=== PATIENT | male | born 1990 | race Two or more races ===

== ENCOUNTER 2023-03-01 20:23 | Emergency (ER) | payer OTHER, SELFPAY ==
--- NOTE | ~2023-03-01 | XR_ITS ---
EXAMINATION: XR CHEST CLINICAL INFORMATION: Chest pain, shortness of breath COMPARISON: None available. TECHNIQUE: Frontal view of the chest was obtained. FINDINGS: Lungs are mildly hypoinflated. No focal consolidation is seen. No evidence of pneumothorax, pleural effusion, or pulmonary edema. The cardiomediastinal contour is unremarkable. No acute osseous findings are seen. XR/XR chest 1V IMPRESSION: Low lung volumes without acute findings.
--- NOTE | 2023-03-01 20:24 | ED.SOB ---
HPI - SOB/Dyspnea General Chief Complaint: Chest Pain Stated Complaint: chest pain sob Time Seen by Provider: 03/01/23 21:06 Source: patient Mode of arrival: ambulatory Limitations: no limitations History of Present Illness HPI Narrative: Patient complaining of chest pain and shortness of breath after eating marijuana gummies patient been sleeping since then vomiting multiple times with midsternal pain saturating 98% at room air tachycardic with heart rate of 120 patient's girlfriend came agreed that patient does not take any other drugs accept cannabis there was question of cocaine use when patient came Related Data Previous Rx's Medication Instructions Recorded ondansetron 4 mg disintegrating 4 mg PO Q6-8H PRN nausea and 03/02/23 tablet vomiting #7 tabs Allergies Allergy/AdvReac Type Severity Reaction Status Date / Time No Known Allergies Allergy Verified 03/01/23 20:24 Review of Systems Review of Systems: Yes all other systems are reviewed and are negative [facility] Social History Social History Alcohol intake: unknown Smoked in Last 30 Days: No Use of substances other than those prescribed or required for medical reasons: Unknown Advance Directives: No Advance Directives Information Provided: Yes Physical Exam Vital Signs: Vital Signs: Last Vital Signs Temp 98.3 F 03/02/23 01:25 Pulse 99 03/02/23 01:25 Resp 15 03/02/23 01:25 BP 133/88 03/02/23 01:25 Pulse Ox 100 03/02/23 01:25 O2 Del Method Room Air 03/02/23 01:25 BMI result Body Mass Index 20.8 Appearance: Lethargic sleepy vomiting frequently No acute distress. Eyes: PERRLA, No Nystagmus ENT: Pharynx normal. Oral Mucosa moist Neck: Normal inspection. Neck supple. CVS: Normal heart rate and rhythm. Pulses normal. Respiratory: No respiratory distress. Equal air entry bilateral, no wheezing/rales/rhonchi Abdomen: Soft mild epigastric tenderness Bowel sounds are present, no mass palpable, no CVA tenderness Skin: Skin warm and dry. Normal skin color. Normal skin turgor. Extremities: No lower extremity edema. No calf tenderness Neuro: Sleepy. No motor deficit. No sensory deficit.No cerebellar signs , cranial nerves II-XII intact Course Course Course Narrative: RME: 33-year-old male with a past medical history of asthma presenting to the ED complaining of sudden onset chest pain and shortness of breath x15 mins. Admits to using cocaine [employer]. Tachycardic to 150s in triage, Hypotensive, appears uncomfortable. Lungs CTA. +emesis on floor of triage. EKG, Labs, UA, BENZ, CXR ordered Full HPI, ROS and PE to be performed by primary ED provider. Medications Administered Discontinued Medications Generic Name Dose Route Start Last Admin Trade Name Freq PRN Reason Stop Dose Admin Famotidine 20 mg 03/01/23 23:13 03/01/23 23:49 Famotidine/Pf 20 Mg/2 Ml Vial IVPUSH 03/01/23 23:14 20 mg ONCE ONE Administration Sodium Chloride 1,000 mls @ 999 mls/hr 03/01/23 23:12 03/02/23 00:51 Ns IV 03/02/23 00:12 Infused .Q1H1M ONE Infusion Sodium Chloride 1,000 mls @ 999 mls/hr 03/02/23 00:49 03/02/23 02:14 Ns IV 03/02/23 01:49 Infused .Q1H1M ONE Infusion Ondansetron HCl 4 mg 03/01/23 22:00 03/01/23 22:06 Ondansetron Odt 4 Mg Tab.Rapdis TRANSLINGU 03/01/23 22:01 4 mg ONCE ONE Administration Ondansetron HCl 4 mg 03/01/23 23:12 03/01/23 23:49 Ondansetron Hcl 4 Mg/2 Ml Vial IVPUSH 03/01/23 23:13 4 mg ONCE ONE Administration Potassium Chloride 10 meq 03/02/23 01:55 03/02/23 02:13 Potassium Chloride Er 10 Meq Tablet.Er PO 03/02/23 01:56 10 meq ONCE ONE Administration Medical Decision Making Medical Decision Making [facility] Narrative: Patient felt better after IV fluids urine tox positive for cannabis only EKG normal high sensitive troponin negative heart score of 0 patient symptoms likely from cannabis use patient taking p.o. fluids discharge patient home with family Differential Diagnosis Differential Diagnoses: The differential diagnosis associated with the presentation includes Metabolic encephalopathy/cannabis induced vomiting/anxiety/substance abuse Lab Data [facility] Lab Attestation statement: I reviewed the patient's lab results. 03/01/23 20:39 03/01/23 20:39 Labs: Lab Results 03/01/23 03/01/23 03/01/23 Range/Units 20:39 20:39 20:39 WBC 11.5 H (4.8-10.8) X10*3/uL RBC 4.79 (4.60-5.80) X10*6/uL Hgb 15.0 (14.0-18.0) g/dl Hct 41.4 L (42.0-52.0) % MCV 86.4 (80.0-98.0) fL MCH 31.3 (27.0-33.0) pg MCHC 36.2 H (31.0-36.0) g/dl RDW 11.8 (11.0-16.0) % Plt Count 292 (160-400) X10*3/uL MPV 10.3 (9.4-12.4) fL Immature Gran % (Auto) 0.3 (0.0-0.4) % Neut % (Auto) 36.4 L (45-73) % Lymph % (Auto) 53.7 H (20-40) % [place] % (Auto) 7.3 (2-11) % Eos % (Auto) 1.7 (0-4) % Baso % (Auto) 0.6 (0-2) % Lymph # (Auto) 6.2 H (1.2-4.9) X10*3/uL [place] # (Auto) 0.8 (0.1-1.2) X10*3/uL Eos # (Auto) 0.2 (0.0-0.4) X10*3/uL Baso # (Auto) 0.1 (0.0-0.2) X10*3/uL Abs Immat Gran (auto) 0.03 (0.00-0.03) X10*3/uL Absolute Neuts (auto) 4.2 (2.0-8.3) x10*3/uL Absolute Nucleated RBC 0.000 (0.0-0.012) X10*3/uL Nucleated RBC % (auto) 0.0 (0.0-0.2) /100WBC Smear Tech's Comments VERIFIED PT 12.1 (11.1-13.3) SEC INR 1.0 (0.9-1.1) Sodium 141 (135-145) mmol/L Potassium 3.1 L (3.3-5.1) mmol/L Chloride 104 (96-108) mmol/L Carbon Dioxide 25 (22-29) mmol/L Anion Gap 15 (12-20) BUN 19 H (9-16) mg/dL Creatinine 1.17 (0.5-1.4) mg/dL Estim Creat Clear Calc 71.3 Estimated GFR > 60 Random Glucose 128 H (60-115) mg/dL Calcium 9.9 (8.4-10.2) mg/dL Magnesium 1.8 (1.6-2.6) mg/dL Total Bilirubin 0.5 (0.0-1.0) mg/dL Direct Bilirubin 0.2 (0.0-0.5) mg/dL AST 22 (5-37) U/L ALT 13 (0-40) U/L Alkaline Phosphatase 63 (39-117) U/L Troponin I High Sens (<3.5-35.0) ng/L Total Protein 7.9 (6.5-8.0) g/dL Albumin 4.5 (3.5-5.0) g/dL Urine Opiates Screen (Not Detect) Urine Fentanyl Screen (Not Detect) Ur Barbiturates Screen (Not Detect) Ur Phencyclidine Scrn (Not Detect) Ur Amphetamines Screen (Not Detect) U Benzodiazepines Scrn (Not Detect) Urine Cocaine Screen (Not Detect) U Marijuana (THC) Screen (Not Detect) Ethyl Alcohol mg/dL 03/01/23 03/01/23 03/02/23 Range/Units 20:39 20:39 01:29 WBC (4.8-10.8) X10*3/uL RBC (4.60-5.80) X10*6/uL Hgb (14.0-18.0) g/dl Hct (42.0-52.0) % MCV (80.0-98.0) fL MCH (27.0-33.0) pg MCHC (31.0-36.0) g/dl RDW (11.0-16.0) % Plt Count (160-400) X10*3/uL MPV (9.4-12.4) fL Immature Gran % (Auto) (0.0-0.4) % Neut % (Auto) (45-73) % Lymph % (Auto) (20-40) % [place] % (Auto) (2-11) % Eos % (Auto) (0-4) % Baso % (Auto) (0-2) % Lymph # (Auto) (1.2-4.9) X10*3/uL [place] # (Auto) (0.1-1.2) X10*3/uL Eos # (Auto) (0.0-0.4) X10*3/uL Baso # (Auto) (0.0-0.2) X10*3/uL Abs Immat Gran (auto) (0.00-0.03) X10*3/uL Absolute Neuts (auto) (2.0-8.3) x10*3/uL Absolute Nucleated RBC (0.0-0.012) X10*3/uL Nucleated RBC % (auto) (0.0-0.2) /100WBC Smear Tech's Comments PT (11.1-13.3) SEC INR (0.9-1.1) Sodium (135-145) mmol/L Potassium (3.3-5.1) mmol/L Chloride (96-108) mmol/L Carbon Dioxide (22-29) mmol/L Anion Gap (12-20) BUN (9-16) mg/dL Creatinine (0.5-1.4) mg/dL Estim Creat Clear Calc Estimated GFR Random Glucose (60-115) mg/dL Calcium (8.4-10.2) mg/dL Magnesium (1.6-2.6) mg/dL Total Bilirubin (0.0-1.0) mg/dL Direct Bilirubin (0.0-0.5) mg/dL AST (5-37) U/L ALT (0-40) U/L Alkaline Phosphatase (39-117) U/L Troponin I High Sens < 2.7 (<3.5-35.0) ng/L Total Protein (6.5-8.0) g/dL Albumin (3.5-5.0) g/dL Urine Opiates Screen Not Detected (Not Detect) Urine Fentanyl Screen Not Detected (Not Detect) Ur Barbiturates Screen Not Detected (Not Detect) Ur Phencyclidine Scrn Not Detected (Not Detect) Ur Amphetamines Screen Not Detected (Not Detect) U Benzodiazepines Scrn Not Detected (Not Detect) Urine Cocaine Screen Not Detected (Not Detect) U Marijuana (THC) Screen POSITIVE H (Not Detect) Ethyl Alcohol < 10 mg/dL Independent Interpretation I performed an independent interpretation of an: EKG Interpretation: Sinus tachycardia heart rate 120 beats per minute no acute ST-T changes no acute ischemia Discharge Plan Discharge Clinical Impression: Cannabis abuse with intoxication Patient Disposition: Home, Self-Care Instructions: Cannabis Abuse (ED) Additional Instructions: Drink plenty of fluids Zofran for nausea/vomiting Stop using cannabis Beber mucho l?quido Zofran para n?useas/v?mitos Alissa de consumir cannabis Prescriptions: New ondansetron 4 mg tablet,disintegrating 4 mg PO Q6-8H PRN (Reason: nausea and vomiting) Qty: 7 0RF Interventions: ED Discharge Assessment Last Done: 03/02/23 02:22 Discharge Date/Time: 03/02/23 02:23 Print Language: Turkish
[2023-03-01 20:25] VITALS: BP 84/63; PULSE 140; RESP 20; TEMP 36.7; O2SAT 100; BMI 20.8
--- NOTE | 2023-03-01 20:25 | ECG_ITS ---
Test Reason : CP Blood Pressure : / mmHG Vent. Rate : 120 BPM Atrial Rate : 120 BPM P-R Int : 120 ms QRS Dur : 090 ms QT Int : 314 ms P-R-T Axes : 066 074 -11 degrees QTc Int : 443 ms Sinus tachycardia Left ventricular hypertrophy with repolarization abnormality ( Sokolow-Mcmillan ) Abnormal ECG No previous ECGs available Referred By: Natalia Mclain Electronically Signed By:ELENA GUERRERO
[2023-03-01 20:53] LABS: Basophils Absolute Auto 0.1 X10*3/uL (0.0-0.2); Basophils Percent Auto 0.6 % (0-2); Eosinophils Absolute Auto 0.2 X10*3/uL (0.0-0.4); Eosinophils Percent Auto 1.7 % (0-4); Hematocrit 41.4 % (42.0-52.0); Imm Gran Abs Auto 0.03 X10*3/uL (0.00-0.03); Imm Gran Pct Auto 0.3 % (0.0-0.4); Lymphocytes Percent Auto 53.7 % (20-40); MANUAL DIFF FLAG SCAN; Mean Corpuscular HGB Conc 36.2 g/dl (31.0-36.0); Mean Corpuscular Hemoglobin 31.3 pg (27.0-33.0); Mean Corpuscular Volume 86.4 fL (80.0-98.0); Mean Platelet Volume 10.3 fL (9.4-12.4); Monocytes Absolute Auto 0.8 X10*3/uL (0.1-1.2); Monocytes Percent Auto 7.3 % (2-11); Neutrophils Absolute Auto 4.2 x10*3/uL (2.0-8.3); Neutrophils Percent Auto 36.4 % (45-73); Platelet Count 292 X10*3/uL (160-400); Prothrombin Time 12.1 SEC (11.1-13.3); Red Blood Count 4.79 X10*6/uL (4.60-5.80); Red Cell Distribution Width 11.8 % (11.0-16.0); SCAN SMEAR FLAG 1; White Blood Count 11.5 X10*3/uL (4.8-10.8)
[2023-03-01 20:55] LABS: Lymphocytes Absolute Auto 6.2 X10*3/uL (1.2-4.9)
[2023-03-01 20:58] LABS: Ethanol < 10 mg/dL
[2023-03-01 21:00] LABS: Alanine Aminotransferase 13 U/L (0-40); Albumin Level 4.5 g/dL (3.5-5.0); Alkaline Phosphatase 63 U/L (39-117); Anion Gap 15 (12-20); Aspartate Amino Transferase 22 U/L (5-37); Bilirubin Direct 0.2 mg/dL (0.0-0.5); Bilirubin Total 0.5 mg/dL (0.0-1.0); Blood Urea Nitrogen 19 mg/dL (9-16); Calcium 9.9 mg/dL (8.4-10.2); Carbon Dioxide 25 mmol/L (22-29); Chloride 104 mmol/L (96-108); Creatinine Clr Calc Pharmacy 71.3; Estimated Glomerular Filt Rate > 60; Glucose Random 128 mg/dL (60-115); Magnesium 1.8 mg/dL (1.6-2.6); Potassium 3.1 mmol/L (3.3-5.1); Sodium 141 mmol/L (135-145); Total Protein 7.9 g/dL (6.5-8.0)
--- NOTE | 2023-03-01 21:06 | PC.NURSE ---
Pt placed in hospital attire, belongings placed in [facility] locker #[id number]
[2023-03-01 21:10] LABS: Troponin-I High Sensitivity < 2.7 ng/L (<3.5-35.0)
[2023-03-01 21:16] LABS: SLIDE REVIEW VERIFIED
[2023-03-01] MEDS: Ondansetron ODT 4 MG TAB.RAPDIS TRANSLINGU (22:06)
--- NOTE | 2023-03-01 22:06 | PC.NURSE ---
pt medicated with zofran odt for N/V
[2023-03-01 22:36] VITALS: BP 113/70; PULSE 108; RESP 22; O2SAT 97
--- NOTE | 2023-03-01 23:11 | PC.NURSE ---
pt drinking water tolerating well
[2023-03-01] MEDS: 0.9 % Sodium Chloride 1,000 ML 999 ML IV (23:48)
[2023-03-01] MEDS: ondansetron HCL 4 MG/2 ML VIAL IVPUSH (23:49)
[2023-03-01] MEDS: Famotidine/PF 20 MG/2 ML VIAL IVPUSH (23:49)
--- NOTE | 2023-03-01 23:50 | PC.NURSE ---
pt vomiting, brown emesis. iv established, NS infusing medicated with zofran and pepcid. Girlfriend at bedside
[2023-03-02] MEDS: 0.9 % Sodium Chloride 1,000 ML 999 ML IV (00:52)
--- NOTE | 2023-03-02 00:52 | PC.NURSE ---
pt unable to void, 2nd liter of NS infusing
[2023-03-02 01:25] VITALS: BP 133/88; PULSE 99; RESP 15; TEMP 36.8; O2SAT 100
--- NOTE | 2023-03-02 01:31 | PC.NURSE ---
pt straight cath for urine
[2023-03-02 01:45] LABS: Amphetamine Screen Urine Not Detected (Not Detect); Barbiturates, Urine Not Detected (Not Detect); Benzodiazepines Screen Urine Not Detected (Not Detect); Cannabinoid Screen Urine POSITIVE (Not Detect); Cocaine Screen Urine Not Detected (Not Detect); Fentanyl, urine Not Detected (Not Detect); Opiate Screen Urine Not Detected (Not Detect); Phencyclidine Screen Urine Not Detected (Not Detect)
[2023-03-02] MEDS: Potassium Chloride ER 10 MEQ TABLET.ER PO (02:13)
--- NOTE | 2023-03-02 02:23 | PC.NURSE ---
pt ambulatory at d/c, gait steady, denies any complaints
== END 2023-03-02 02:23 | disposition home or self-care (01) ==
PROVIDERS: Physician Assistant; Emergency Provider Internal Medicine
DX: F12.120 Cannabis abuse with intoxication, uncomplicated (principal); R07.9 Chest pain, unspecified; R10.13 Epigastric pain; R11.2 Nausea with vomiting, unspecified; R00.0 Tachycardia, unspecified; R06.02 Shortness of breath; R53.83 Other fatigue
CPT/HCPCS: 36415; 51701; 71045; 80048; 80076; 80307; 83735; 84484; 85025; 85610; 93005; 96361; 96374; 96375; 99285; J2405